=== PATIENT | female | born 1965 | race African-American/Black ===

== ENCOUNTER 2019-04-13 06:42 | Emergency (ER) | payer SELFPAY ==
[~2019-04-13] VITALS: Ht 170.2 cm; Wt 54.0 kg
[2019-04-13 06:57] VITALS: BP 147/68
--- NOTE | 2019-04-13 07:16 | PHYS DOC ---
Past Medical History Past Medical History: No Pertinent History Past Surgical History: No Surgical History Alcohol Use: None Adult General Chief Complaint Chief Complaint: FLU SYMPTOM HPI HPI Patient is a 53 year old -Serbian female who presents with flulike symptoms. Patient reports a thank you subjective fevers chills, sweats, there is no congestion rhinorrhea, nonproductive cough the past several days. Denies shortness of breath. Patient's been taking Mucinex without relief of symptoms. 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 No history of COPD or asthma. No other acute symptoms or complaints. Patient is a current smoker.[] Review of Systems Review of Systems ROS as per HPI All other systems were reviewed and found to be within normal limits, except as documented in this note. Allergies Allergies Allergies Coded Allergies Type Severity Reaction Last Updated Verified No Known Drug Allergies 04/13/19 No Physical Exam Physical Exam Constitutional: Well developed, well nourished, no acute distress, non-toxic appearance. [] HENT: Normocephalic, atraumatic, bilateral external ears normal, oropharynx moist, nose, congestion, clear rhinorhea. [] Eyes: PERRLA, EOMI, conjunctiva normal, no discharge. [] Neck: Normal range of motion, no tenderness, supple, no stridor. [] Cardiovascular:Heart rate regular rhythm, no murmur [] Lungs & Thorax: Bilateral breath sounds clear to auscultation [] Abdomen: Bowel sounds normal, soft, no tenderness, no masses, no pulsatile masses. [] Skin: Warm, dry, no erythema, no rash. [] Back: No tenderness, no CVA tenderness. [] Extremities: No tenderness, no cyanosis, no clubbing, ROM intact, no edema. [] Neurologic: Alert and oriented X 3, normal motor function, normal sensory function, no focal deficits noted. [] Psychologic: Affect normal, judgement normal, mood normal. [] Current Patient Data Vital Signs Vital Signs Date Time Temp Pulse Resp B/P (MAP) Pulse Ox O2 Delivery O2 Flow Rate FiO2 04/13/19 06:57 99.1 80 20 147/68 (94) 97 Room Air 99.1 Lab Values Laboratory Tests Test 04/13/19 07:01 Influenza Type A Antigen Negative (NEGATIVE) Influenza Type B Antigen Negative (NEGATIVE) EKG EKG [] Radiology/Procedures Radiology/Procedures [] Course & Med Decision Making Course & Med Decision Making Pertinent Labs and Imaging studies reviewed. (See chart for details) [] Dragon Disclaimer Dragon Disclaimer This electronic medical record was generated, in whole or in part, using a voice recognition dictation system. Departure Departure Referrals: NO PCP (PCP) Scripts Promethazine HCl/Codeine (Prometh-Codein 6.25-10 mg/5 ml) 5 Ml Syrup 5 ML PO PRN Q4-6HRS PRN for cough MDD 30 Milliliter(s), #120 ML 0 Refills Prov: BOB BOYD DO 04/13/19 BOB BOYD DO Apr 13, 2019 07:16
[2019-04-13] MEDS ORDERED: PROM5SYR2 PO (07:22)
[2019-04-13 07:26] LABS: INFLUENZA A PATIENT NEGATIVE (NEGATIVE); INFLUENZA B PATIENT NEGATIVE (NEGATIVE)
== END 2019-04-13 07:31 | disposition home or self-care (01) ==
LOC: ER 06:42
DX: R50.9 Fever, unspecified (principal); L75.0 Bromhidrosis; F17.200 Nicotine dependence, unspecified, uncomplicated
CPT/HCPCS: 87804; 99284

== ENCOUNTER 2021-06-27 17:10 | Emergency (ER) | payer SELFPAY ==
[~2021-06-27] VITALS: Ht 170.2 cm; Wt 140.0 kg
[~2021-06-27 17:10] MED LIST: PROM5SYR2 PO
[2021-06-27 17:28] VITALS: BP 181/79
--- NOTE | 2021-06-27 18:05 | PHYS DOC ---
Past Medical History Past Medical History: No Pertinent History Past Surgical History: No Surgical History Smoking Status: Current Every Day Smoker Alcohol Use: None General Adult EDM: Chief Complaint: WRIST PAIN HPI: HPI: Patient is a 55-year-old female who presents to the emergency department complaining of left wrist pain at her ganglion cyst site. 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 Patient states she does need a work note to return to work tomorrow. Patient denies injury, reports a 7 out of 10 pain, has not taken pain medications or tried nonpharmacological pain relief methods at home prior to arrival to the emergency department. Patient reports she has had this cyst for some years now and flares up from time to time. Patient denies other physical complaints or physical concerns. Review of Systems: Review of Systems: 14 body systems of review of systems have been reviewed. See HPI for pertinent positives and negative responses, otherwise all other systems are negative, nonpertinent or noncontributory. Constitutional: Negative except as outlined in HPI above. Skin: Negative except as outlined in HPI above. Eyes: Negative except as outlined in HPI above. HENT: Negative except as outlined in HPI above. Respiratory: Negative except as outlined in HPI above. Cardiovascular: Negative except as outlined in HPI above. GI: Negative except as outlined in HPI above. : Negative except as outlined in HPI above. Musculoskeletal: Negative except as outlined in HPI above. Integument: Negative except as outlined in HPI above. Neurologic: Negative except as outlined in HPI above. Endocrine: Negative except as outlined in HPI above. Lymphatic: Negative except as outlined in HPI above. Psychiatric: Negative except as outlined in HPI above. Heart Score: C/O Chest Pain: No Risk Factors: Risk Factors: DM, Current or recent (<one month) smoker, HTN, HLP, family history of CAD, obesity. Risk Scores: Score 0 - 3: 2.5% MACE over next 6 weeks - Discharge Home Score 4 - 6: 20.3% MACE over next 6 weeks - Admit for Clinical Observation Score 7 - 10: 72.7% MACE over next 6 weeks - Early Invasive Strategies Current Medications: Current Medications Medications (Trade) Dose Ordered Sig/Dallin Start Time Stop Time Status Last Admin Dose Admin Ibuprofen (Motrin) 600 mg 1X ONCE 06/27/21 17:45 06/27/21 17:46 UNV Allergies: Allergies: Allergies Coded Allergies Type Severity Reaction Last Updated Verified No Known Drug Allergies 06/27/21 No Physical Exam: PE: Constitutional: Well developed, well nourished, no acute distress, non-toxic a ppearance. 55-year-old female in no apparent distress. HENT: Normocephalic, atraumatic. Eyes: Conjunctiva normal, no discharge. Neck: Normal range of motion, no stridor. Cardiovascular: No cyanosis appreciated, distal cap refill less than 2 seconds. Lungs & Thorax: Patient is in no respiratory distress, no audible adventitious lung sounds appreciated. Abdomen: Nontender, no abnormalities noted. Skin: Warm, dry, no erythema, no rash. Back: No tenderness, no deformities. Extremities: No tenderness, no cyanosis, no clubbing, ROM intact, no edema. Except for left wrist, there is a ganglion on cyst at the #1 carpal metacarpal joint, no erythema, full parent/AROM of all fingers of the left hand, distal cap refill less than 2 seconds bilateral upper extremities, 2+ radial pulses equal bilateral upper extremities. No crepitus, no deformities, no swelling, no edema appreciated. Neurologic: Alert and oriented X 3, normal motor function, normal sensory function, no focal deficits noted. Psychologic: Affect normal, judgement normal, mood normal. Current Patient Data: Vital Signs: Vital Signs Date Time Temp Pulse Resp B/P (MAP) Pulse Ox O2 Delivery O2 Flow Rate FiO2 06/27/21 17:28 98.6 76 16 181/79 (113) Room Air 98.6 EKG: EKG: [] Radiology/Procedures: Radiology/Procedures: [] Course & Med Decision Making: Course & Med Decision Making Pertinent Labs and Imaging studies reviewed. (See chart for details) 55-year-old female, vital signs reviewed, presents emergency department requesting a note to go back to work, left wrist ganglion cyst pain. Physical examination consistent with ganglion cyst of the left wrist. Will give 600 mg ibuprofen, Velcro wrist splint, return to work note. Discussed with patient follow-up with primary care soon, return to ER precautions and concerns were reviewed. Patient gave verbal understanding of and is amenable to ED discharge planning. Discussed with the patient all findings and diagnostic testing as well as the need to follow-up with their primary care provider for further evaluation and treatment or return to the ED if any new or worsening symptoms. Strict return precautions were also discussed at length, the patient voiced understanding and agreement with the discharge planning. The patient was nontoxic in appearance, in no apparent distress, and hemodynamically stable at the time of disposition. Nahomi Disclaimer: Nahomi Disclaimer: This electronic medical record was generated, in whole or in part, using a voice recognition dictation system. Departure Departure Impression: Primary Impression: Ganglion cyst of volar aspect of left wrist Disposition: HOME / SELF CARE / HOMELESS Condition: GOOD Referrals: NO PCP (PCP) Patient Instructions: Ganglion Cyst Additional Instructions: You are seen today in the emergency department for left wrist pain. You do have a ganglion cyst, I will treat you today with a ibuprofen tablet. Please use wrist splints at night and while at work. Consider obtaining a wrist compression sleeve for ongoing management of your ganglion cyst. Please follow- up with your primary care physician for ongoing discomfort and problems, thank you for visiting our Emergency Department. It was a pleasure taking care of you today in the emergency department and we appreciate you trusting us with your care. If any additional problems come up don't hesitate to return to visit us. Please follow up with your primary care provider so they can plan additional care if needed and know about the problem that you had. If symptoms worsen come back to the Emergency Department. Any concerning symptoms that start such as chest pain, shortness of air, weakness or numbness on one side of the body, running high fevers or any other concerning symptoms return to the ER. [facility] [address] [place] [address] [facility] [address] [place] [address] [facility] [address] [place] [address] [facility] [address] [place] [address] [facility] [address] [place] [address] [facility] [address] [place] [address] [facility] [address] [place] [address] [facility] [address] [place] [address] [facility] [address] [place] [address] [facility] [address] [place] [address] JOSUE JUAREZ APRN Jun 27, 2021 18:05
[2021-06-27] MEDS ORDERED: IBUPROFEN 200 MG TABLET. PO ONE (18:15)
== END 2021-06-27 18:18 | disposition home or self-care (01) ==
LOC: ER 17:10
DX: M67.432 Ganglion, left wrist (principal); F17.200 Nicotine dependence, unspecified, uncomplicated
CPT/HCPCS: 29125; 99283

== ENCOUNTER 2021-08-14 18:42 | Emergency (ER) | payer SELFPAY ==
[~2021-08-14] VITALS: Ht 165.1 cm; Wt 66.7 kg
[2021-08-14] MEDS ORDERED: DEXAMETHASONE 4 MG TABLET PO ONE (20:00)
[2021-08-14] MEDS ORDERED: KETOROLAC 30 MG/ML VIAL. IM ONE (20:00)
[2021-08-14 20:17] LABS: BASO # 0.1 x10^3/uL (0.0-0.2); BASO % 1 % (0-3); EOS # 0.2 x10^3/uL (0.0-0.7); EOS % 1 % (0-3); HEMATOCRIT 41.7 % (36.0-47.0); HEMOGLOBIN 13.9 g/dL (12.0-15.5); LYMPH % 24 % (24-48); MEAN CORPUSCULAR HEMOGLOBIN 30 pg (25-35); MEAN CORPUSCULAR HGB CONC 33 g/dL (31-37); MEAN CORPUSCULAR VOLUME 91 fL (79-100); MONO # 1.1 x10^3/uL (0.0-1.1); MONO % 8 % (0-9); NEUT # 8.3 x10^3/uL (1.8-7.7); NEUT % 66 % (31-73); PLATELET COUNT 254 x10^3/uL (140-400); RED BLOOD COUNT 4.59 x10^6/uL (3.50-5.40); WHITE BLOOD COUNT 12.7 x10^3/uL (4.0-11.0)
[2021-08-14 20:29] LABS: CALCIUM 9.3 mg/dL (8.5-10.1); CREATININE 0.9 mg/dL (0.6-1.0); GFR 78.1; POTASSIUM 4.2 mmol/L (3.5-5.1)
[2021-08-14 20:35] LABS: ALBUMIN 3.4 g/dL (3.4-5.0); ALBUMIN/GLOBULIN RATIO 0.8 (1.0-1.7); TOTAL BILIRUBIN 0.3 mg/dL (0.2-1.0); TOTAL PROTEIN 7.8 g/dL (6.4-8.2)
--- NOTE | 2021-08-14 20:47 | RAD ---
EXAM: XR KNEE _3 VIEWS_LT 08/14/2021 7:51 PM CLINICAL INDICATION: Painful, swollen erythematous joint COMPARISON: None TECHNIQUE: 3 views of the left knee FINDINGS: No acute fracture. Alignment is normal. Mild lateral compartment narrowing and tiny tricom partmental osteophytes. There is a small joint effusion and mild suprapatellar soft tissue swelling. IMPRESSION: 1. No acute osseous abnormality. 2. Small joint effusion and mild suprapatellar soft tissue swelling. Electronically signed by: Jeannine Sr MD (08/14/2021 8:44 PM) [facility]
[2021-08-14] MEDS ORDERED: INDO50CA15 PO (20:51)
--- NOTE | 2021-08-14 20:56 | PHYS DOC ---
Past Medical History Past Medical History: No Pertinent History Past Surgical History: No Surgical History Smoking Status: Current Every Day Smoker Alcohol Use: None General Adult EDM: Chief Complaint: LOWER EXT PAIN HPI: HPI: Patient is a 55 year old female who presents with left knee swelling and pain. 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 Today, she noticed that her left knee was painful and swollen. She reports this has happened before, to both of her knees as well as the MTP joints of her bilateral great toes. Patient denies fever, chills, generalized weakness, limited m ovement of the joint or any recent injury. Review of Systems: Review of Systems: ROS negative or noncontributory except as mentioned in HPI. Heart Score: C/O Chest Pain: No Current Medications: Current Medications Medications (Trade) Dose Ordered Sig/Dallin Start Time Stop Time Status Last Admin Dose Admin Dexamethasone (Decadron) 10 mg 1X ONCE 08/14/21 20:00 08/14/21 20:01 DC 08/14/21 20:17 10 MG Ketorolac Tromethamine (Toradol 30mg Vial) 30 mg 1X ONCE 08/14/21 20:00 08/14/21 20:01 DC 08/14/21 20:17 30 MG Allergies: Allergies: Allergies Coded Allergies Type Severity Reaction Last Updated Verified No Known Drug Allergies 06/27/21 No Physical Exam: PE: Constitutional: Well developed, well nourished, no acute distress, non-toxic appearance. HENT: Normocephalic, atraumatic, bilateral external ears normal, nose normal. Eyes: EOMI, conjunctiva normal, no discharge. Neck: Normal range of motion, no stridor. Skin: Warm, dry, no rash. Extremities: Left knee swollen, warm to touch and tender; active and passive range of motion intact. Extremities otherwise no tenderness, no cyanosis, no clubbing, ROM intact, no edema. Neurologic: Alert and oriented x4, normal motor function, normal sensory functi on, no focal deficits noted. Current Patient Data: Labs: Laboratory Tests Test 08/14/21 20:00 White Blood Count 12.7 x10^3/uL (4.0-11.0) H Red Blood Count 4.59 x10^6/uL (3.50-5.40) Hemoglobin 13.9 g/dL (12.0-15.5) Hematocrit 41.7 % (36.0-47.0) Mean Corpuscular Volume 91 fL (79-100) Mean Corpuscular Hemoglobin 30 pg (25-35) Mean Corpuscular Hemoglobin Concent 33 g/dL (31-37) Red Cell Distribution Width 14.0 % (11.5-14.5) Platelet Count 254 x10^3/uL (140-400) Neutrophils (%) (Auto) 66 % (31-73) Lymphocytes (%) (Auto) 24 % (24-48) Monocytes (%) (Auto) 8 % (0-9) Eosinophils (%) (Auto) 1 % (0-3) Basophils (%) (Auto) 1 % (0-3) Neutrophils # (Auto) 8.3 x10^3/uL (1.8-7.7) H Lymphocytes # (Auto) 3.0 x10^3/uL (1.0-4.8) Monocytes # (Auto) 1.1 x10^3/uL (0.0-1.1) Eosinophils # (Auto) 0.2 x10^3/uL (0.0-0.7) Basophils # (Auto) 0.1 x10^3/uL (0.0-0.2) Sodium Level 145 mmol/L (136-145) Potassium Level 4.2 mmol/L (3.5-5.1) Chloride Level 108 mmol/L (98-107) H Carbon Dioxide Level 26 mmol/L (21-32) Anion Gap 11 (6-14) Blood Urea Nitrogen 17 mg/dL (7-20) Creatinine 0.9 mg/dL (0.6-1.0) Estimated GFR (Cockcroft-Gault) 78.1 BUN/Creatinine Ratio 19 (6-20) Glucose Level 87 mg/dL (70-99) Calcium Level 9.3 mg/dL (8.5-10.1) Total Bilirubin 0.3 mg/dL (0.2-1.0) Aspartate Amino Transferase (AST) 19 U/L (15-37) Alanine Aminotransferase (ALT) 21 U/L (14-59) Alkaline Phosphatase 105 U/L (46-116) Total Protein 7.8 g/dL (6.4-8.2) Albumin 3.4 g/dL (3.4-5.0) Albumin/Globulin Ratio 0.8 (1.0-1.7) L Laboratory Tests 08/14/21 20:00 Laboratory Tests 08/14/21 20:00 Vital Signs: Vital Signs Date Time Temp Pulse Resp B/P (MAP) Pulse Ox O2 Delivery O2 Flow Rate FiO2 08/14/21 21:00 79 143/78 (99) 98 Room Air 08/14/21 18:55 98.6 86 18 176/78 (110) 98 Room Air 98.6 Radiology/Procedures: Radiology/Procedures: PROCEDURE: KNEE LEFT 3V EXAM: XR KNEE _3 VIEWS_LT 08/14/2021 7:51 PM CLINICAL INDICATION: Painful, swollen erythematous joint COMPARISON: None TECHNIQUE: 3 views of the left knee FINDINGS: No acute fracture. Alignment is normal. Mild lateral compartment narrowing and tiny tricompartmental osteophytes. There is a small joint effusion and mild suprapatellar soft tissue swelling. IMPRESSION: 1. No acute osseous abnormality. 2. Small joint effusion and mild suprapatellar soft tissue swelling. Electronically signed by: Jeannine Sr MD (08/14/2021 8:44 PM) [facility] Course & Med Decision Making: Course & Med Decision Making Pertinent Labs and Imaging studies reviewed. (See chart for details) Patient is a 55-year-old female who presents with erythematous, edematous and tender left knee. Due to patient reporting that this is happened before, and gone away, as well as similar symptoms in the MTP joints of her great toes, gout is likely. Septic arthritis is also on the differential, labs were ordered. Patient does have elevated white count, but is otherwise not showing signs of infection. Patient will be treated for gout of the left knee, but blood cultures will be obtained. Additionally, patient is instructed to have the wound reevaluated in 2 days. Case was discussed with the Dr. Quintero, attending in the ER prior to patient discharge. Strict return precautions were provided to the patient. She understands and is agreeable to discharge plan. Dragon Disclaimer: Dragon Disclaimer: This electronic medical record was generated, in whole or in part, using a voice recognition dictation system. Departure Departure Impression: Primary Impression: Gouty arthritis of left knee Disposition: 01 HOME / SELF CARE / HOMELESS Condition: STABLE Referrals: NO PCP (PCP) Patient Instructions: Gout, [id number] Additional Instructions: As discussed, you should have your knee reevaluated in 2 days. Please return to the emergency department for worsening symptoms or any new symptoms, including fever, chills or generalized weakness. EMERGENCY DEPARTMENT GENERAL DISCHARGE INSTRUCTIONS Thank you for coming to [facility] Emergency Department (ED) today and trusting us with you care. We trust that you had a positive experien ce in our Emergency Department. If you wish to speak to the department management, you may call the director at . YOUR FOLLOW UP INSTRUCTIONS ARE FOLLOWS: 1. Follow up with your primary care doctor. If you do not have a primary doctor, please ask for a resource list of physicians or clinics that may be able to assist you with follow up care. 2. The emergency provider has interpreted your imaging studies, if any were ordered. The radiology community education specialist also reviewed them. If there is a change in the findings, you will be notified in 48 hours when at all possible. 3. If a lab test or culture has been done, your results will be reviewed and you will be notified if you need a change in treatment. 4. Follow instructions verbalized to you and refer to the printouts if needed. ADDITIONAL INSTRUCTIONS AND INFORMATION: 1. Your care today has been supervised by a physician who is specially trained in emergency care. Many problems require more than one evaluation for a complete diagnosis and treatment. We recommend that you schedule your follow up appointment as recommended to ensure complete treatment of you illness or injury. If you are unable to obtain follow up care and continue to have a problem, or if your condition worsens, we recommend that you return to the ED. 2. We are not able to safely determine your condition over the phone nor are we able to give sound medical advice over the phone. For these safety reasons, if you call for medical advice we will ask you to come to the ED for further evaluation. 3. If you have any questions regarding these discharge instructions please call the ED at . SAFETY INFORMATION: In the interest of safety, wellness, and injury prevention; we encourage you to wear your seat belt, if you smoke; quite smoking, and we encourage family to use a protective helmet for bicycling and other sporting events that present an increased risk for head injury. IF YOUR SYMPTOMS WORSEN OR NEW SYMPTOMS DEVELOP, OR YOU HAVE CONCERNS ABOUT YOUR CONDITION; OR IF YOUR CONDITION WORSENS WHILE YOU ARE WAITING FOR YOUR FOLLOW UP APPOINTMENT; EITHER CONTACT YOUR PRIMARY CARE DOCTOR, THE PHYSICIAN WHOSE NAME AND NUMBER YOU WERE GIVEN, OR RETURN TO THE ED IMMEDIATELY. Scripts Indomethacin (INDOMETHACIN) 50 Mg Capsule 1 CAP PO TID for arthritis for 3 Days, #9 CAP 0 Refills with food Prov: BENJI SMILEY 08/14/21 BENJI SMILEY August 14, 2021 20:56
[2021-08-14 21:00] VITALS: BP 143/78
--- NOTE | 2021-08-18 16:08 | VNOTE ---
CALL BACK NOTE CALL BACK Microbiology 08/14/21 Blood Culture - Final, Complete Micrococcus Species Blood culture positive for gram-positive cocci in clusters. Patient was contacted without answer. Voicemail was left for patient to contact the emergency department. 's phone number listed has a voicemail message as follows: "Hello? [Pause] call me back in about 5 minutes." And then the voicemail beep place. Message was not left on 's voicemail. Patient called the department back and was advised to present for evaluation of presumed septic arthritis of her left knee. Patient understands and agrees to come for evaluation. BENJI SMILEY August 18, 2021 16:08
[2021-08-19] MEDS ORDERED: AMOX1TAB61 PO (11:02)
[2021-08-19] MEDS ORDERED: HYDR-2759 PO (11:03)
[2021-08-19] MEDS ORDERED: DICL20GE TP (12:27)
== END 2021-08-14 21:20 | disposition home or self-care (01) ==
LOC: ER 18:42
DX: M10.9 Gout, unspecified (principal); F17.200 Nicotine dependence, unspecified, uncomplicated
CPT/HCPCS: 36415; 73562; 80053; 85025; 87040; 87077; 96372; 99284; J1885